=== PATIENT | male | born 1955 | race African-American/Black ===

== ENCOUNTER 2016-06-15 19:42 | Emergency (ER) | payer MEDICAID ==
[~2016-06-15] VITALS: Ht 180.3 cm; Wt 88.0 kg
[~2016-06-15 19:42] MED LIST: BUPR300T28 PO; CIPR-263 PO; MULT-348 PO; OMEP40CA34 PO; PROM6.25 PO
[2016-06-15 21:45] VITALS: BP 148/87
[2016-06-15] MEDS ORDERED: LIDOCAINE HCL/EPINEPHRINE 1%-EPI 1:100,000 20 ML VIAL INFIL ONE (21:45)
[2016-06-15] MEDS ORDERED: TETANUS, DIPHTHERIA, PERTUSSIS VAC/PF 0.5ML (>7YR OLD) IM ONE (21:45)
[2016-06-15] MEDS ORDERED: CEFAZOLIN 1000MG PREMIX 50 ML IV ONE (21:45)
[2016-06-15] MEDS ORDERED: ONDANSETRON HCL 4MG/2ML VIAL IV ONE (21:45)
[2016-06-15] MEDS ORDERED: MORPHINE SULFATE 4 MG/ML CPJ (NOT FOR IM USE) IV ONE (21:45)
[2016-06-16] MEDS ORDERED: LIDOCAINE HCL/EPINEPHRINE 1%-EPI 1:100,000 20 ML VIAL ONE (00:24)
[2016-06-16] MEDS ORDERED: BACITRACIN ZINC OINT UDPKT TOP ONE (01:15)
== END 2016-06-16 02:16 | disposition home or self-care (01) ==
LOC: ER 19:52
DX: S01.01XA Laceration without foreign body of scalp, initial encounter (principal); S01.511A Laceration without foreign body of lip, initial encounter; I10 Essential (primary) hypertension; Z88.8 Allergy status to other drugs, medicaments and biological substances; Z79.899 Other long term (current) drug therapy; Y08.89XA Assault by other specified means, initial encounter; Y93.89 Activity, other specified; Y99.8 Other external cause status; Y92.89 Other specified places as the place of occurrence of the external cause
CPT/HCPCS: 12006; 12011; 70450; 90471; 90715; 96374; 96375; 99284; J0690; J2270; J2405; J3490

== ENCOUNTER 2016-06-22 10:50 | Emergency (ER) | payer MEDICAID ==
[~2016-06-22] VITALS: Ht 180.3 cm; Wt 91.0 kg
[2016-06-22 11:11] VITALS: BP 154/104
[2016-06-22] MEDS ORDERED: BACITRACIN ZINC OINT UDPKT TOP ONE (13:45)
== END 2016-06-22 13:55 | disposition home or self-care (01) ==
LOC: ER 12:35
DX: Z48.02 Encounter for removal of sutures (principal); I10 Essential (primary) hypertension; F12.10 Cannabis abuse, uncomplicated; Z88.8 Allergy status to other drugs, medicaments and biological substances; Z79.899 Other long term (current) drug therapy
CPT/HCPCS: 99282; Z7610

== ENCOUNTER 2017-08-05 00:55 | Emergency (ER) | payer MEDICAID ==
[~2017-08-05] VITALS: Ht 180.3 cm; Wt 86.0 kg
[~2017-08-05 00:55] MED LIST changes: -BUPR300T28 PO; +BUPR300T54 PO
[2017-08-05] MEDS ORDERED: DIPHENHYDRAMINE 50MG/ML VIAL IV ONE (02:30)
[2017-08-05] MEDS ORDERED: METHYLPREDNISOLONE SOD SUCC 125 MG/2 ML VIAL IV ONE (02:30)
[2017-08-05] MEDS ORDERED: FAMOTIDINE 20MG/2ML VIAL IV ONE (02:30)
[2017-08-05 04:19] VITALS: BP 118/79
== END 2017-08-05 04:59 | disposition home or self-care (01) ==
LOC: ER 00:55
DX: T78.40XA Allergy, unspecified, initial encounter (principal); K21.9 Gastro-esophageal reflux disease without esophagitis; N40.0 Benign prostatic hyperplasia without lower urinary tract symptoms; I10 Essential (primary) hypertension; F32.9 Major depressive disorder, single episode, unspecified; F12.10 Cannabis abuse, uncomplicated; Z88.8 Allergy status to other drugs, medicaments and biological substances
CPT/HCPCS: 96374; 96375; 99284; J1200; J2930; J3490

== ENCOUNTER 2021-01-27 20:11 | Emergency (ER) | payer MEDICARE, MEDICAID ==
[~2021-01-27] VITALS: Ht 180.3 cm; Wt 87.0 kg
[~2021-01-27 20:11] MED LIST changes: +BUPR-315 PO; -BUPR300T54 PO; +OMEP40CA20 PO; -OMEP40CA34 PO; -PROM6.25 PO; +PROM6.254 PO
[2021-01-27] MEDS ORDERED: IBUPROFEN 600MG TABLET PO ONE (21:00)
[2021-01-27] MEDS ORDERED: IBUP-2029 MT (22:13)
[2021-01-28 00:16] VITALS: BP 128/70
== END 2021-01-28 00:17 | disposition home or self-care (01) ==
LOC: ER 20:11
DX: S80.01XA Contusion of right knee, initial encounter (principal); I10 Essential (primary) hypertension; K21.9 Gastro-esophageal reflux disease without esophagitis; Z88.8 Allergy status to other drugs, medicaments and biological substances; F32.A Depression, unspecified; F12.10 Cannabis abuse, uncomplicated; V43.52XA Car driver injured in collision with other type car in traffic accident, initial encounter; Y93.89 Activity, other specified; Y92.488 Other paved roadways as the place of occurrence of the external cause
CPT/HCPCS: 29505; 73560; 99283; L1830

== ENCOUNTER 2022-11-09 14:34 | Emergency (ER) | payer MEDICARE, MEDICAID ==
[~2022-11-09] VITALS: Ht 180.3 cm; Wt 86.0 kg
[~2022-11-09 14:34] MED LIST changes: +IBUP-2029 MT; +PROM6.2525 PO; -PROM6.254 PO
[2022-11-09 14:40] VITALS: O2SAT 97
[2022-11-09] MEDS ORDERED: HYDR453.3 TP (15:13)
[2022-11-09 15:55] VITALS: BP 136/76; PULSE 74; RESP 16; TEMP 98.6
== END 2022-11-09 15:57 | disposition home or self-care (01) ==
LOC: ER 14:34
DX: S40.869A Insect bite (nonvenomous) of unspecified upper arm, initial encounter (principal); W57.XXXA Bitten or stung by nonvenomous insect and other nonvenomous arthropods, initial encounter; Y93.9 Activity, unspecified; Y92.89 Other specified places as the place of occurrence of the external cause; Y99.8 Other external cause status
CPT/HCPCS: 71045; 99283

== ENCOUNTER 2023-01-24 10:39 | Emergency (ER) | payer MEDICARE, MEDICAID ==
[~2023-01-24] VITALS: Ht 177.8 cm; Wt 91.0 kg
[~2023-01-24 10:39] MED LIST changes: +HYDR453.3 TP; -PROM6.2525 PO; +PROM6.2527 PO
[2023-01-24 10:46] VITALS: BP 159/95; PULSE 81; RESP 18; O2SAT 100
[2023-01-24 11:30] VITALS: TEMP 98
[2023-01-24] MEDS ORDERED: ACETAMINOPHEN 325MG TABLET PO ONE (11:30)
[2023-01-24] MEDS ORDERED: LIDOCAINE 5% PATCH TOP SCH (11:30)
== END 2023-01-24 15:19 | disposition home or self-care (01) ==
LOC: ER 10:39
DX: M25.552 Pain in left hip (principal); M25.562 Pain in left knee; F12.10 Cannabis abuse, uncomplicated; I10 Essential (primary) hypertension; Z88.8 Allergy status to other drugs, medicaments and biological substances; V09.9XXA Pedestrian injured in unspecified transport accident, initial encounter; Y93.89 Activity, other specified; Y92.89 Other specified places as the place of occurrence of the external cause; Y99.8 Other external cause status
CPT/HCPCS: 73502; 73562; 99284

== ENCOUNTER 2025-02-16 16:18 | Emergency (ER) | payer OTHER, MEDICARE, MEDICAID ==
[~2025-02-16] VITALS: Ht 180.3 cm; Wt 89.0 kg
[~2025-02-16 16:18] MED LIST changes: -BUPR-315 PO; +BUPR-710 PO; +IBUP-1455 MT; -IBUP-2029 MT
[2025-02-16 16:43] VITALS: TEMP 36.9; O2SAT 99
[2025-02-16] MEDS ORDERED: ACET-2708 MT (21:21)
[2025-02-16] MEDS ORDERED: LIDO-53 TP (21:21)
[2025-02-16 21:51] VITALS: BP 170/100; PULSE 81; RESP 15; O2SAT 100
== END 2025-02-16 21:57 | disposition home or self-care (01) ==
LOC: ER 16:18
DX: S16.1XXA Strain of muscle, fascia and tendon at neck level, initial encounter (principal); S13.4XXA Sprain of ligaments of cervical spine, initial encounter; M17.11 Unilateral primary osteoarthritis, right knee; Z79.899 Other long term (current) drug therapy; Z88.8 Allergy status to other drugs, medicaments and biological substances; V89.2XXA Person injured in unspecified motor-vehicle accident, traffic, initial encounter; Y92.410 Unspecified street and highway as the place of occurrence of the external cause; Y93.89 Activity, other specified; Y99.8 Other external cause status
CPT/HCPCS: 99284; 71045; 73562; A6449